=== PATIENT | male | born 1950 | race Caucasian/White ===

== ENCOUNTER 2021-12-11 20:35 | Emergency (ER) | payer MEDICARE, OTHER ==
[~2021-12-11 20:35] MED LIST: NORCO 5-325 TA1 EACH PO; ZOFRAN4 MG PO
[2021-12-11] MEDS ORDERED: PREDNISONE 20MG20 MG PO (21:30)
== END 2021-12-11 21:34 | disposition home or self-care (01) ==
LOC: FER 20:35
DX: T63.441A Toxic effect of venom of bees, accidental (unintentional), initial encounter (principal); L23.89 Allergic contact dermatitis due to other agents; Z28.310 Unvaccinated for COVID-19; Z91.030 Bee allergy status
CPT/HCPCS: J2930

== ENCOUNTER 2022-02-07 11:36 | Emergency (ER) | payer MEDICARE, OTHER ==
[~2022-02-07 11:36] MED LIST changes: +PREDNISONE 20MG20 MG PO
[2022-02-07 12:47] LABS: BASOPHIL 0.6 % (0-2); EOSINOPHIL 0.6 % (0-7); HCT 40.4 % (42.0-52.0); HGB 14.1 g/dl (13.2-18.0); LYMPHOCYTE 10.8 % (15-48); MCH 33.4 pg (25.0-31.0); MCHC 34.9 g/dL (32.0-36.0); MCV 95.7 fL (78.0-100.0); MONOCYTE 6.5 % (0-12); MPV 9.1 fL (6.0-9.5); NEUTROPHIL 81.1 % (41-80); NRBC 0; PLT 156 K/uL (150-400); RBC 4.22 M/uL (4.70-6.00); RDW 12.7 % (11.5-14.0); WBC 4.9 K/uL (4.0-10.5)
[2022-02-07 13:01] LABS: BUN/CREAT RATIO (CALC) 19.6 RATIO; CREATININE 0.97 mg/dL (0.67-1.17); POTASSIUM 3.9 mmol/L (3.5-5.1)
== END 2022-02-07 14:09 | disposition home or self-care (01) ==
LOC: FER 11:36
PROVIDERS: Emergency Medicine
DX: H81.10 Benign paroxysmal vertigo, unspecified ear (principal); Z28.310 Unvaccinated for COVID-19
CPT/HCPCS: 36415; 80048; 85025; 93005; 97161; 97530-GP